=== PATIENT | male | born 2000 | race Caucasian/White ===

== ENCOUNTER 2021-12-14 00:33 | Emergency (ER) ==
[~2021-12-14] VITALS: Ht 175.3 cm; Wt 93.2 kg
== END 2021-12-14 03:17 | disposition left against medical advice (07) ==
LOC: M ED 00:33
DX: Z53.21 Procedure and treatment not carried out due to patient leaving prior to being seen by health care provider (principal)

== ENCOUNTER 2022-09-01 11:50 | Emergency (ER) | payer OTHER ==
[~2022-09-01] VITALS: Ht 180.3 cm; Wt 98.6 kg
[2022-09-01 16:56] LABS: BASO % 0.3 % (0.0-1.0); HEMATOCRIT 45.6 % (42.0-52.0); HEMOGLOBIN 15.3 g/dl (13.5-17.5); LYMPH # 1.4 10^3/uL (1.5-5.0); LYMPH % 11.7 % (24.0-44.0); MEAN CORPUSCULAR HEMOGLOBIN 29.6 pg (27.0-33.0); MEAN CORPUSCULAR HGB CONC 33.6 g/dl (32.0-36.5); MEAN CORPUSCULAR VOLUME 88.2 fl (80.0-96.0); MONO # 0.4 10^3/uL (0.0-0.8); MONO % 3.6 % (2.0-8.0); NEUTROPHILS # 10.1 10^3/uL (1.5-8.5); NEUTROPHILS % 84.1 % (36.0-66.0); PLATELET COUNT, AUTOMATED 272 10^3/uL (150-450); RED BLOOD COUNT 5.17 10^6/uL (4.30-6.10); WHITE BLOOD COUNT 12.1 10^3/uL (4.0-10.0)
[2022-09-01 17:26] VITALS: BP 130/73
== END 2022-09-01 18:14 | disposition home or self-care (01) ==
LOC: M ED 11:50
DX: R40.0 Somnolence (principal); T50.905A Adverse effect of unspecified drugs, medicaments and biological substances, initial encounter; Z86.19 Personal history of other infectious and parasitic diseases